=== PATIENT | female | born 1985 | race African-American/Black ===

== ENCOUNTER 2023-10-28 09:30 | Emergency (ER) | payer BC ==
[2023-10-28] MEDS ORDERED: Dexamethasone 4 mg/ml Vial ONE (10:50)
[2023-10-28] MEDS ORDERED: Triamcinolone 40 MG/ML VIAL IM SCH (11:00)
[2023-10-28 11:10] LABS: Hematocrit 33.6 % (34.9-44.5); Hemoglobin 11.2 g/dL (12.0-15.5); Mean Corpuscular HGB CONC 33.3 g/dL (32.0-36.0); Mean Corpuscular Hemoglobin 27.5 pg (27.0-33.0); Mean Corpuscular Volume 82.4 fl (81.6-98.3); Mean Platelet Volume 11.5 fl (7.4-10.4); Platelet Count 173 10x3/uL (150-450); RBC Distribution Width 12.2 % (11.5-14.5); Red Blood Cell (RBC) Count 4.08 10x6/uL (3.90-5.03); White Blood Cell (WBC) Count 2.5 10x3/uL (3.5-10.5)
[2023-10-28 11:24] LABS: SARS-CoV-2 NAA Rapid Test Not Detected (NotDetected)
[2023-10-28 11:33] LABS: ALT (SGPT) 11 U/L (8-55); AST (SGOT) 22 U/L (5-34); Albumin 3.7 g/dL (3.5-5.0); Alkaline Phosphatase 44 U/L (40-110); Anion Gap 11 mmol/L (10-20); BUN (Urea Nitrogen) 6 mg/dL (7.0-18.7); Bilirubin, Total 0.8 mg/dL (0.2-1.2); Calc. Creatinine Clearance 0 mL/min (70-130); Calcium 8.3 mg/dL (7.8-10.44); Carbon Dioxide 23 mmol/L (22-29); Chloride 108 mmol/L (98-107); Estimated GFR 87; Globulin 3.4 g/dL (2.4-3.5); Glucose 82 mg/dL (70-105); Potassium 3.5 mmol/L (3.5-5.1); Protein, Total 7.1 g/dL (6.0-8.3); Sodium 138 mmol/L (136-145)
[2023-10-28 11:39] LABS: Band 7 % (5-11); Lymphocytes 22 % (21-51); Monocytes 10 % (0-10)
[2023-10-28 11:41] LABS: MDiff Complete? YES; Neutrophil 60 % (42-75)
[2023-10-28 11:42] LABS: Metamyelocyte 1 % (0-0)
[2023-10-28 11:44] LABS: Platelet Adequacy Comment Platelets Normal; RBC Morph Comment Within Normal Limits
== END 2023-10-28 11:58 | disposition home or self-care (01) ==
LOC: CSHERS 09:30
DX: J10.1 Influenza due to other identified influenza virus with other respiratory manifestations (principal); Z20.822 Contact with and (suspected) exposure to COVID-19
CPT/HCPCS: 36415; 71046; 80053; 85025; 96372; J1100; J3301